=== PATIENT | male | born 1955 | race Caucasian/White ===

== ENCOUNTER 2024-06-25 16:31 | Inpatient (IN) | payer MEDICARE, OTHER ==
[2024-06-25] VITALS (10 sets, daily range): BP systolic 83–148; BP diastolic 53–104; PULSE 88–121; RESP 15–21; TEMP 97.1–98.1; O2SAT 96–98
[~2024-06-25] VITALS: Ht 157.5 cm; Wt 72.6 kg
[2024-06-25] MEDS: METHYLPREDNISOLONE SOD SUCC 125 MG/2ML VIAL IV STA (17:09)
[2024-06-25] MEDS: SODIUM CHLORIDE 0.9% 1000ML 1,000 ML IV STA (17:09)
[2024-06-25] MEDS: ALBUTEROL/IPRATROPIUM 3 ML NEB NEB ONE (17:14)
[2024-06-25 17:33] LABS: BASOPHILS % 0.2 % (0.0-1.0); HEMATOCRIT 43.7 % (38.2-49.6); HEMOGLOBIN 14.1 g/dL (14.0-18.0); LYMPHOCYTES # (AUTO) 0.4 (1.0-3.2); LYMPHOCYTES % 1.7 % (18.0-39.1); MEAN CORPUSCULAR HEMOGLOBIN 30.1 pg (28-32); MEAN CORPUSCULAR HGB CONC 32.3 g/dL (31-35); MEAN CORPUSCULAR VOLUME 93.2 fL (81-99); MONOCYTES # (AUTO) 0.8 (0.2-0.8); MONOCYTES % 3.5 % (4.4-11.3); NEUTROPHILS # (AUTO) 20.7 (2.1-6.9); NEUTROPHILS % 93.9 % (38.7-80.0); PLATELET COUNT 174 x10e3/uL (140-360); RED BLOOD COUNT 4.69 x10e6/uL (4.3-5.7); RED CELL DISTRIBUTION WIDTH 12.4 % (11.7-14.4); WHITE BLOOD COUNT 22.02 x10e3/uL (4.8-10.8)
[2024-06-25 17:48] LABS: INR 0.89; PARTIAL THROMBOPLASTIN TIME 21.3 seconds (23.8-35.5); PROTHROMBIN TIME 12.6 seconds (11.9-14.5)
[2024-06-25 17:52] LABS: CORONAVIRUS COVID-19 AG NEGATIVE (NEGATIVE); INFLUENZA A AG NEGATIVE (NEGATIVE); INFLUENZA B AG NEGATIVE (NEGATIVE)
[2024-06-25 17:56] LABS: ALBUMIN 3.3 g/dL (3.5-5.0); ALBUMIN/GLOBULIN RATIO 1.1 (0.8-2.0); ANION GAP 18.1 mmol/L (8-16); BILIRUBIN,TOTAL 0.8 mg/dL (0.2-1.2); CALCIUM 9.1 mg/dL (8.4-10.2); CREATININE, SERUM 1.2 mg/dL (0.72-1.25); POTASSIUM 5.1 mmol/L (3.5-5.1); TOTAL PROTEIN 6.3 g/dL (6.5-8.1)
[2024-06-25 17:59] LABS: B-TYPE NATRIURETIC PEPTIDE2 137.6 pg/mL (0-100)
[2024-06-25 18:02] LABS: TROPONIN I 0.093 ng/mL (0-0.300)
[2024-06-25 18:08] LABS: LYMPHOCYTES % (MANUAL) 2 % (19-48); MONOCYTES % (MANUAL) 5 % (3.4-9.0); NEUTROPHILS % (MANUAL) 93 % (40-74)
[2024-06-25 18:09] LABS: PLATELET ESTIMATE ADEQUATE; PLATELET MORPHOLOGY COMMENT NORMAL
[2024-06-25] MEDS ORDERED: IOPAMIDOL 370 MG/ML 100 ML INFUS..BTL INJ ONE (18:34)
[2024-06-25] MEDS: SODIUM CHLORIDE 0.9% 1000ML 1,000 ML IV SCH (19:00)
[2024-06-25] MEDS: LORAZEPAM INJ 2 MG/ML VIAL IV PRN (20:01)
[2024-06-25 21:17] LABS: ABG HCO3 31 mmol/L (22-26); ABG PCO2 54 mmHg (35-45); ABG PH 7.36 (7.35-7.45); ABG PO2 124 mmHg (80-105); ABG TCO2 32
[2024-06-25] MEDS: ALBUTEROL/IPRATROPIUM 3 ML NEB NEB SCH (22:03)
[2024-06-25] MEDS: INSULIN REGULAR, HUMAN 100 UNIT/1 ML SQ SCH (23:17)
[2024-06-26] VITALS (36 sets, daily range): BP systolic 93–183; BP diastolic 56–103; PULSE 57–130; RESP 14–30; TEMP 96.6–98.1; O2SAT 94–100
[2024-06-26 00:51] LABS: TROPONIN I 0.089 ng/mL (0-0.300)
[2024-06-26] MEDS: ONDANSETRON HCL INJ 2MG/ML 2ML 2 MG/ML VIAL IV PRN (04:04)
[2024-06-26] MEDS: DEXMEDETOMIDINE 400MCG/NS100ML 100 ML IV PRN (04:40)
[2024-06-26 06:26] LABS: ABG HCO3 31 mmol/L (22-26); ABG PCO2 45 mmHg (35-45); ABG PH 7.44 (7.35-7.45); ABG PO2 146 mmHg (80-105); ABG TCO2 32
[2024-06-26] MEDS ORDERED: INSULIN LISPRO 100 UNIT/1 ML 3ML VIAL SQ SCH (07:30)
[2024-06-26 07:44] LABS: BASOPHILS % 0.1 % (0.0-1.0); HEMATOCRIT 32.4 % (38.2-49.6); HEMOGLOBIN 10.4 g/dL (14.0-18.0); LYMPHOCYTES # (AUTO) 0.2 (1.0-3.2); LYMPHOCYTES % 1.3 % (18.0-39.1); MEAN CORPUSCULAR HEMOGLOBIN 30.2 pg (28-32); MEAN CORPUSCULAR HGB CONC 32.1 g/dL (31-35); MEAN CORPUSCULAR VOLUME 94.2 fL (81-99); MONOCYTES # (AUTO) 0.5 (0.2-0.8); MONOCYTES % 2.8 % (4.4-11.3); NEUTROPHILS # (AUTO) 15.5 (2.1-6.9); NEUTROPHILS % 95.2 % (38.7-80.0); PLATELET COUNT 125 x10e3/uL (140-360); RED BLOOD COUNT 3.44 x10e6/uL (4.3-5.7); RED CELL DISTRIBUTION WIDTH 11.9 % (11.7-14.4); WHITE BLOOD COUNT 16.31 x10e3/uL (4.8-10.8)
[2024-06-26 08:09] LABS: TROPONIN I 0.079 ng/mL (0-0.300)
[2024-06-26] MEDS: HEPARIN SOD (PORCINE) 5,000 UNIT/ML VIAL SC SCH (08:38)
[2024-06-26 08:47] LABS: ALBUMIN 2.4 g/dL (3.5-5.0); ALBUMIN/GLOBULIN RATIO 1.4 (0.8-2.0); ANION GAP 14.3 mmol/L (8-16); BILIRUBIN,TOTAL 0.4 mg/dL (0.2-1.2); CALCIUM 7.8 mg/dL (8.4-10.2); CREATININE, SERUM 1.14 mg/dL (0.72-1.25); POTASSIUM 4.3 mmol/L (3.5-5.1); TOTAL PROTEIN 4.1 g/dL (6.5-8.1)
[2024-06-26 10:46] LABS: ABG HCO3 31 mmol/L (22-26); ABG PCO2 45 mmHg (35-45); ABG PH 7.44 (7.35-7.45); ABG PO2 146 mmHg (80-105); ABG TCO2 32
[2024-06-26 10:48] LABS: LYMPHOCYTES % (MANUAL) 5 % (19-48); MONOCYTES % (MANUAL) 5 % (3.4-9.0); NEUTROPHILS % (MANUAL) 90 % (40-74)
[2024-06-26 10:49] LABS: PLATELET ESTIMATE ADEQUATE; PLATELET MORPHOLOGY COMMENT NORMAL
[2024-06-26] MEDS: PREDNISONE 20 MG TAB PO SCH (11:23)
[2024-06-26] MEDS ORDERED: MULTI-VITAMIN1 EACH PO (12:59)
[2024-06-26] MEDS ORDERED: zinc PO (12:59)
[2024-06-26] MEDS ORDERED: PREDNISONE10 MG PO (12:59)
[2024-06-26] MEDS ORDERED: VITAMIN B-121000 MC2 PO (12:59)
[2024-06-26] MEDS ORDERED: K-DUR10 MEQ PO (12:59)
[2024-06-26] MEDS ORDERED: ATORVASTATIN CA20 MG PO (12:59)
[2024-06-26] MEDS ORDERED: vitamin D PO (12:59)
[2024-06-26] MEDS ORDERED: GLIPIZIDE5 MG PO (12:59)
[2024-06-26] MEDS ORDERED: ASPIRIN81 MG PO (12:59)
[2024-06-26] MEDS ORDERED: LISINOPRIL10 MG PO (12:59)
[2024-06-26] MEDS ORDERED: NITROGLYCERIN0.4 MG SL (12:59)
[2024-06-26] MEDS: Morphine 4mg INJECTION 4 MG/ML INJ IV PRN (20:08)
[2024-06-26] MEDS: ATORVASTATIN 20 MG TAB PO SCH (21:04)
[2024-06-26] MEDS: INSULIN GLARGINE 100 UNITS/ML VIAL SQ SCH (21:12)
[2024-06-26] MEDS: MELATONIN 3 MG TAB PO PRN (21:38)
[2024-06-27] VITALS (23 sets, daily range): BP systolic 120–175; BP diastolic 67–105; PULSE 90–122; RESP 16–31; TEMP 98–99; O2SAT 89–100
[2024-06-27 06:38] LABS: ABG HCO3 31 mmol/L (22-26); ABG PCO2 54 mmHg (35-45); ABG PH 7.36 (7.35-7.45); ABG PO2 124 mmHg (80-105); ABG TCO2 32
[2024-06-27] MEDS: INSULIN GLARGINE 100 UNITS/ML VIAL SQ STA (07:30)
[2024-06-27] MEDS: INSULIN LISPRO 100 UNIT/1 ML 3ML VIAL SQ SCH (07:31)
[2024-06-27 08:11] LABS: BASOPHILS % 0.1 % (0.0-1.0); EOSINOPHILS % 0.1 % (0.0-6.0); HEMATOCRIT 37.4 % (38.2-49.6); HEMOGLOBIN 11.9 g/dL (14.0-18.0); LYMPHOCYTES # (AUTO) 0.7 (1.0-3.2); LYMPHOCYTES % 2.9 % (18.0-39.1); MEAN CORPUSCULAR HEMOGLOBIN 29.8 pg (28-32); MEAN CORPUSCULAR HGB CONC 31.8 g/dL (31-35); MEAN CORPUSCULAR VOLUME 93.5 fL (81-99); MONOCYTES % 4.2 % (4.4-11.3); NEUTROPHILS # (AUTO) 22.4 (2.1-6.9); NEUTROPHILS % 91.6 % (38.7-80.0); PLATELET COUNT 147 x10e3/uL (140-360); RED CELL DISTRIBUTION WIDTH 12.1 % (11.7-14.4); WHITE BLOOD COUNT 24.45 x10e3/uL (4.8-10.8)
[2024-06-27 08:31] LABS: CALCIUM 8.8 mg/dL (8.4-10.2); CREATININE, SERUM 1.07 mg/dL (0.72-1.25)
[2024-06-27 09:11] LABS: FREE THYROXINE INDEX 1.5736 (1.4-3.8); T3 UPTAKE 37.38 % (22.5-37.0); T4 (THYROXINE) 4.21 ug/dL (4.5-10.9); THYROID STIMULATING HORMONE 0.672 uIU/mL (0.350-4.940)
[2024-06-27] MEDS ORDERED: QUETIAPINE FUMARATE 25 MG TAB PO PRN (10:30)
[2024-06-27 11:47] LABS: BAND NEUTROPHILS % (MANUAL) 1 %; LYMPHOCYTES % (MANUAL) 4 % (19-48); MONOCYTES % (MANUAL) 1 % (3.4-9.0); NEUTROPHILS % (MANUAL) 94 % (40-74); PLATELET ESTIMATE SLIGHTLY DECREASED; PLATELET MORPHOLOGY COMMENT NORMAL; RBC MORPHOLOGY COMMENT NORMAL
[2024-06-27] MEDS: LISINOPRIL 2.5 MG TAB PO SCH (11:55)
[2024-06-27] MEDS: BUSPIRONE HCL 5 MG TAB PO SCH (16:56)
[2024-06-27] MEDS: INSULIN REGULAR, HUMAN 100 UNIT/1 ML ONE (18:09)
[2024-06-27] MEDS: QUETIAPINE FUMARATE 25 MG TAB PO PRN (20:56)
[2024-06-27] MEDS: INSULIN GLARGINE 100 UNITS/ML VIAL SQ SCH (21:00)
[2024-06-28] VITALS (20 sets, daily range): BP systolic 96–168; BP diastolic 67–136; PULSE 97–126; RESP 16–29; TEMP 97.6–98.9; O2SAT 96–100
[2024-06-28] MEDS: PREDNISONE 10 MG TAB PO SCH (08:53)
[2024-06-28] MEDS: CEPHALEXIN 500 MG CAP PO SCH (08:53)
[2024-06-28] MEDS: ALPRAZOLAM 0.5 MG TAB PO PRN (08:53)
[2024-06-28] MEDS: CLONIDINE HCL 0.2 MG/24 HR 1 EA PATCH TOP SCH (09:42)
[2024-06-28] MEDS: QUETIAPINE FUMARATE 25 MG TAB PO SCH (09:43)
[2024-06-28] MEDS: AZITHROMYCIN 250 MG TAB PO SCH (19:25)
[2024-06-29] VITALS (20 sets, daily range): BP systolic 82–148; BP diastolic 47–93; PULSE 51–139; RESP 14–26; TEMP 96.9–98.3; O2SAT 91–100
[2024-06-29 07:05] LABS: BASOPHILS % 0.1 % (0.0-1.0); EOSINOPHILS # (AUTO) 0.4 (0.0-0.4); EOSINOPHILS % 2.8 % (0.0-6.0); HEMATOCRIT 34.1 % (38.2-49.6); HEMOGLOBIN 11.4 g/dL (14.0-18.0); LYMPHOCYTES % 6.8 % (18.0-39.1); MEAN CORPUSCULAR HGB CONC 33.4 g/dL (31-35); MEAN CORPUSCULAR VOLUME 89.7 fL (81-99); MONOCYTES # (AUTO) 1.1 (0.2-0.8); MONOCYTES % 7.8 % (4.4-11.3); NEUTROPHILS # (AUTO) 11.3 (2.1-6.9); NEUTROPHILS % 80.5 % (38.7-80.0); PLATELET COUNT 133 x10e3/uL (140-360); RED CELL DISTRIBUTION WIDTH 12.6 % (11.7-14.4); WHITE BLOOD COUNT 14.02 x10e3/uL (4.8-10.8)
[2024-06-29 07:34] LABS: ANION GAP 13.1 mmol/L (8-16); CALCIUM 8.9 mg/dL (8.4-10.2); CREATININE, SERUM 1.1 mg/dL (0.72-1.25)
[2024-06-29] MEDS: DEXTROSE 50% SYRINGE 50 ML IV PRN (07:34)
[2024-06-29 07:38] LABS: POTASSIUM 3.1 mmol/L (3.5-5.1)
[2024-06-29] MEDS: QUETIAPINE FUMARATE 25 MG TAB PO SCH (20:07)
[2024-06-30] VITALS (24 sets, daily range): BP systolic 89–148; BP diastolic 19–86; PULSE 60–128; RESP 14–27; TEMP 97.4–98.2; O2SAT 95–100
[2024-06-30] MEDS: QUETIAPINE FUMARATE 25 MG TAB PO SCH (08:29)
[2024-06-30 11:36] LABS: BASOPHILS % 0.2 % (0.0-1.0); EOSINOPHILS # (AUTO) 0.5 (0.0-0.4); EOSINOPHILS % 3.2 % (0.0-6.0); HEMATOCRIT 34.3 % (38.2-49.6); HEMOGLOBIN 10.8 g/dL (14.0-18.0); LYMPHOCYTES # (AUTO) 0.7 (1.0-3.2); LYMPHOCYTES % 4.2 % (18.0-39.1); MEAN CORPUSCULAR HEMOGLOBIN 30.2 pg (28-32); MEAN CORPUSCULAR HGB CONC 31.5 g/dL (31-35); MONOCYTES % 6.1 % (4.4-11.3); NEUTROPHILS # (AUTO) 14.5 (2.1-6.9); NEUTROPHILS % 84.7 % (38.7-80.0); RED BLOOD COUNT 3.58 x10e6/uL (4.3-5.7); RED CELL DISTRIBUTION WIDTH 12.6 % (11.7-14.4); WHITE BLOOD COUNT 17.12 x10e3/uL (4.8-10.8)
[2024-06-30 11:38] LABS: MEAN CORPUSCULAR VOLUME 95.8 fL (81-99); PLATELET COUNT 112 x10e3/uL (140-360)
[2024-06-30 11:51] LABS: ANION GAP 11.3 mmol/L (8-16); CALCIUM 7.7 mg/dL (8.4-10.2); CREATININE, SERUM 0.92 mg/dL (0.72-1.25)
[2024-06-30 12:02] LABS: POTASSIUM 3.3 mmol/L (3.5-5.1)
[2024-07-01] VITALS (12 sets, daily range): BP systolic 94–140; BP diastolic 49–97; PULSE 92–126; RESP 20–24; TEMP 97.7–98.6; O2SAT 96–100
[2024-07-01] MEDS: HYDROXYZINE HCL 25 MG TAB PO SCH (14:49)
[2024-07-01] MEDS: MELATONIN 3 MG TAB PO SCH (20:42)
[2024-07-01] MEDS: DIVALPROEX SODIUM 250 MG TAB...DR PO SCH (20:43)
[2024-07-01] MEDS: TRAZODONE HCL 50 MG TAB PO SCH (20:43)
[2024-07-01] MEDS ORDERED: QUETIAPINE FUMARATE 100 MG TAB PO SCH (21:00)
[2024-07-01] MEDS ORDERED: HYDROXYZINE HCL 25 MG TAB PO SCH (21:00)
[2024-07-02] VITALS (16 sets, daily range): BP systolic 98–139; BP diastolic 54–98; PULSE 63–125; RESP 18–28; TEMP 97.1–98.6; O2SAT 96–100
[2024-07-02] MEDS ORDERED: QUETIAPINE FUMARATE 25 MG TAB PO SCH (09:00)
[2024-07-02 10:34] LABS: ABG HCO3 31 mmol/L (22-26); ABG PCO2 42 mmHg (35-45); ABG PH 7.48 (7.35-7.45); ABG PO2 136 mmHg (80-105); ABG TCO2 32
[2024-07-02 14:41] LABS: BASOPHILS % 0.2 % (0.0-1.0); EOSINOPHILS # (AUTO) 0.6 (0.0-0.4); EOSINOPHILS % 3.6 % (0.0-6.0); HEMOGLOBIN 11.6 g/dL (14.0-18.0); LYMPHOCYTES # (AUTO) 0.4 (1.0-3.2); LYMPHOCYTES % 2.6 % (18.0-39.1); MEAN CORPUSCULAR HEMOGLOBIN 30.6 pg (28-32); MEAN CORPUSCULAR HGB CONC 34.1 g/dL (31-35); MEAN CORPUSCULAR VOLUME 89.7 fL (81-99); MONOCYTES # (AUTO) 1.1 (0.2-0.8); MONOCYTES % 6.3 % (4.4-11.3); NEUTROPHILS # (AUTO) 14.4 (2.1-6.9); NEUTROPHILS % 85.6 % (38.7-80.0); PLATELET COUNT 110 x10e3/uL (140-360); RED BLOOD COUNT 3.79 x10e6/uL (4.3-5.7); RED CELL DISTRIBUTION WIDTH 12.4 % (11.7-14.4); WHITE BLOOD COUNT 16.84 x10e3/uL (4.8-10.8)
[2024-07-02 14:55] LABS: CALCIUM 9.2 mg/dL (8.4-10.2); CREATININE, SERUM 1.02 mg/dL (0.72-1.25)
[2024-07-02] MEDS: HYDROXYZINE HCL 25 MG TAB PO ONE (16:41)
[2024-07-02] MEDS: HALOPERIDOL LACTATE 5 MG/ML VIAL IM ONE (16:48)
[2024-07-02] MEDS: KETAMINE 50MG/5ML SYR IV ONE (18:10)
[2024-07-02 18:26] LABS: ABG PCO2 37 mmHg (35-45); ABG PH 7.49 (7.35-7.45)
[2024-07-02 18:27] LABS: ABG HCO3 28 mmol/L (22-26); ABG PO2 304 mmHg (80-105); ABG TCO2 29
[2024-07-02] MEDS: DEXMEDETOMIDINE 400MCG/NS100ML 100 ML IV PRN (19:46)
[2024-07-03] VITALS (21 sets, daily range): BP systolic 82–147; BP diastolic 42–76; PULSE 66–108; RESP 16–25; TEMP 97–98.2; O2SAT 95–100
[2024-07-03 05:29] LABS: BASOPHILS % 0.3 % (0.0-1.0); EOSINOPHILS # (AUTO) 0.6 (0.0-0.4); EOSINOPHILS % 4.2 % (0.0-6.0); HEMATOCRIT 32.4 % (38.2-49.6); HEMOGLOBIN 10.1 g/dL (14.0-18.0); LYMPHOCYTES # (AUTO) 0.8 (1.0-3.2); LYMPHOCYTES % 5.5 % (18.0-39.1); MEAN CORPUSCULAR HGB CONC 31.2 g/dL (31-35); MEAN CORPUSCULAR VOLUME 96.1 fL (81-99); MONOCYTES # (AUTO) 0.9 (0.2-0.8); MONOCYTES % 5.9 % (4.4-11.3); NEUTROPHILS # (AUTO) 12.1 (2.1-6.9); NEUTROPHILS % 82.5 % (38.7-80.0); PLATELET COUNT 101 x10e3/uL (140-360); RED BLOOD COUNT 3.37 x10e6/uL (4.3-5.7); RED CELL DISTRIBUTION WIDTH 12.3 % (11.7-14.4); WHITE BLOOD COUNT 14.65 x10e3/uL (4.8-10.8)
[2024-07-03 05:37] LABS: ANION GAP 12.5 mmol/L (8-16); CALCIUM 8.5 mg/dL (8.4-10.2); CREATININE, SERUM 1.07 mg/dL (0.72-1.25); POTASSIUM 3.5 mmol/L (3.5-5.1)
[2024-07-03 08:01] LABS: ABG HCO3 31 mmol/L (22-26); ABG PCO2 42 mmHg (35-45); ABG PH 7.48 (7.35-7.45); ABG PO2 136 mmHg (80-105); ABG TCO2 32
[2024-07-03 08:01] LABS: ABG HCO3 28 mmol/L (22-26); ABG PCO2 37 mmHg (35-45); ABG PH 7.49 (7.35-7.45); ABG PO2 304 mmHg (80-105); ABG TCO2 29
[2024-07-03] MEDS: VENLAFAXINE HCL 37.5 MG TAB PO SCH (10:04)
[2024-07-03] MEDS: ALPRAZOLAM 0.5 MG TAB PO SCH (10:04)
[2024-07-03] MEDS: HYDROXYZINE HCL 25 MG TAB PO SCH (14:10)
[2024-07-03 18:02] LABS: ABG HCO3 30 mmol/L (22-26); ABG PCO2 48 mmHg (35-45); ABG PO2 96 mmHg (80-105); ABG TCO2 31
[2024-07-03] MEDS: TRAZODONE HCL 50 MG TAB PO SCH (21:42)
[2024-07-04] VITALS (28 sets, daily range): BP systolic 86–140; BP diastolic 55–89; PULSE 75–112; RESP 16–30; TEMP 98.4–98.7; O2SAT 96–100
[2024-07-04] MEDS ORDERED: HYDROXYZINE HCL 25 MG TAB PO PRN (11:15)
[2024-07-04] MEDS ORDERED: MAGNESIUM HYDROXIDE 30 ML UDC PO PRN (11:30)
[2024-07-04] MEDS ORDERED: LISINOPRIL 2.5 MG TAB PO PRN (11:30)
[2024-07-04 14:22] LABS: ABG HCO3 30 mmol/L (22-26); ABG PCO2 48 mmHg (35-45); ABG PO2 96 mmHg (80-105); ABG TCO2 31
[2024-07-05] VITALS (25 sets, daily range): BP systolic 95–156; BP diastolic 53–118; PULSE 84–103; RESP 14–30; TEMP 97.4–98.6; O2SAT 97–100
[2024-07-05 06:34] LABS: BASOPHILS # (AUTO) 0.1 (0.0-0.1); BASOPHILS % 0.4 % (0.0-1.0); EOSINOPHILS # (AUTO) 0.4 (0.0-0.4); EOSINOPHILS % 3.6 % (0.0-6.0); HEMATOCRIT 32.5 % (38.2-49.6); HEMOGLOBIN 10.2 g/dL (14.0-18.0); LYMPHOCYTES # (AUTO) 0.7 (1.0-3.2); LYMPHOCYTES % 5.9 % (18.0-39.1); MEAN CORPUSCULAR HGB CONC 31.4 g/dL (31-35); MEAN CORPUSCULAR VOLUME 95.6 fL (81-99); MONOCYTES # (AUTO) 0.7 (0.2-0.8); MONOCYTES % 6.1 % (4.4-11.3); NEUTROPHILS # (AUTO) 9.4 (2.1-6.9); NEUTROPHILS % 83.3 % (38.7-80.0); PLATELET COUNT 99 x10e3/uL (140-360); RED CELL DISTRIBUTION WIDTH 12.3 % (11.7-14.4); WHITE BLOOD COUNT 11.24 x10e3/uL (4.8-10.8)
[2024-07-05 07:11] LABS: ALBUMIN 1.9 g/dL (3.5-5.0); ALBUMIN/GLOBULIN RATIO 0.7 (0.8-2.0); BILIRUBIN,TOTAL 0.7 mg/dL (0.2-1.2); CALCIUM 8.6 mg/dL (8.4-10.2); CREATININE, SERUM 0.8 mg/dL (0.72-1.25); TOTAL PROTEIN 4.8 g/dL (6.5-8.1)
[2024-07-05] MEDS: SENNOSIDES 8.6 MG TAB PO SCH (09:00)
[2024-07-05] MEDS: DOCUSATE SODIUM 100 MG CAP PO SCH (09:00)
[2024-07-06] VITALS (24 sets, daily range): BP systolic 91–157; BP diastolic 51–91; PULSE 80–118; RESP 17–27; TEMP 97.8–98.4; O2SAT 82–100
[2024-07-06 06:28] LABS: BASOPHILS % 0.5 % (0.0-1.0); EOSINOPHILS # (AUTO) 0.3 (0.0-0.4); EOSINOPHILS % 4.1 % (0.0-6.0); HEMATOCRIT 30.9 % (38.2-49.6); HEMOGLOBIN 9.7 g/dL (14.0-18.0); LYMPHOCYTES # (AUTO) 0.6 (1.0-3.2); MEAN CORPUSCULAR HEMOGLOBIN 29.8 pg (28-32); MEAN CORPUSCULAR HGB CONC 31.4 g/dL (31-35); MEAN CORPUSCULAR VOLUME 94.8 fL (81-99); MONOCYTES # (AUTO) 0.7 (0.2-0.8); MONOCYTES % 8.4 % (4.4-11.3); NEUTROPHILS # (AUTO) 6.6 (2.1-6.9); NEUTROPHILS % 79.2 % (38.7-80.0); PLATELET COUNT 107 x10e3/uL (140-360); RED BLOOD COUNT 3.26 x10e6/uL (4.3-5.7)
[2024-07-06 07:07] LABS: ALBUMIN 1.8 g/dL (3.5-5.0); ALBUMIN/GLOBULIN RATIO 0.7 (0.8-2.0); ANION GAP 13.7 mmol/L (8-16); BILIRUBIN,TOTAL 0.6 mg/dL (0.2-1.2); CALCIUM 8.3 mg/dL (8.4-10.2); CREATININE, SERUM 0.73 mg/dL (0.72-1.25); POTASSIUM 3.7 mmol/L (3.5-5.1); TOTAL PROTEIN 4.3 g/dL (6.5-8.1)
[2024-07-06] MEDS ORDERED: ALPRAZOLAM 0.5 MG TAB PO PRN (17:00)
[2024-07-06] MEDS ORDERED: TRAZODONE HCL 50 MG TAB PO SCH (21:00)
[2024-07-06] MEDS ORDERED: SODIUM CHLORIDE 0.9% 100 ML ONE (21:45)
== END 2024-07-06 22:12 | DRG 871 ==
LOC: ER 16:38 → ERHOLD 18:45 → ICU 19:37 → MED/SURG3 06-30 22:37 → IMCU 07-02 19:23 → ICU 07-03 18:47
PROVIDERS: ADMIT Internal Medicine; ATTEND Internal Medicine
PROC: 3E0333Z Introduction of Anti-inflammatory into Peripheral Vein, Percutaneous Approach (ICD-10-PCS; principal; 2024-06-25)
PROC: 4A133R1 Monitoring of Arterial Saturation, Peripheral, Percutaneous Approach (ICD-10-PCS; 2024-06-25)
DX: A41.9 Sepsis, unspecified organism (principal); G93.41 Metabolic encephalopathy; J18.9 Pneumonia, unspecified organism; J96.21 Acute and chronic respiratory failure with hypoxia; J44.0 Chronic obstructive pulmonary disease with (acute) lower respiratory infection; J44.1 Chronic obstructive pulmonary disease with (acute) exacerbation; F23 Brief psychotic disorder; Z78.1 Physical restraint status; Z99.81 Dependence on supplemental oxygen; E11.65 Type 2 diabetes mellitus with hyperglycemia; I10 Essential (primary) hypertension; E11.649 Type 2 diabetes mellitus with hypoglycemia without coma; R74.01 Elevation of levels of liver transaminase levels; J43.9 Emphysema, unspecified; F41.9 Anxiety disorder, unspecified; T38.0X5A Adverse effect of glucocorticoids and synthetic analogues, initial encounter; R45.1 Restlessness and agitation; Z11.52 Encounter for screening for COVID-19; M54.9 Dorsalgia, unspecified
CPT/HCPCS: 36415; 36569; 36600; 51700; 71045; 71260; 80048; 80053; 82103; 82140; 82550; 82805; 82947; 82948; 83605; 83735; 83880; 84436; 84443; 84479; 84484; 85025; 85379; 85610; 85730; 87040; 93005; 93306; 94640; 94660; 94799; 96372; 99252; 99284; J1630; J1644; J1815; J2060; J2270; J2405; J2543; J2919; J3410; J7030; J7050; J7512; J7799; Q9967

== ENCOUNTER 2024-09-08 18:09 | Inpatient (IN) | payer MEDICARE ==
[~2024-09-08] VITALS: Ht 157.5 cm; Wt 72.6 kg
[~2024-09-08 18:09] MED LIST: ASPIRIN81 MG PO; ATORVASTATIN CA20 MG PO; GLIPIZIDE5 MG PO; K-DUR10 MEQ PO; LISINOPRIL10 MG PO; MULTI-VITAMIN1 EACH PO; NITROGLYCERIN0.4 MG SL; PREDNISONE10 MG PO; VITAMIN B-121000 MC2 PO; vitamin D PO; zinc PO
[2024-09-08 18:36] LABS: BASOPHILS % 0.2 % (0.0-1.0); HEMATOCRIT 40.8 % (38.2-49.6); HEMOGLOBIN 13.5 g/dL (14.0-18.0); LYMPHOCYTES # (AUTO) 1.2 (1.0-3.2); MEAN CORPUSCULAR HEMOGLOBIN 30.3 pg (28-32); MEAN CORPUSCULAR HGB CONC 33.1 g/dL (31-35); MEAN CORPUSCULAR VOLUME 91.7 fL (81-99); MONOCYTES # (AUTO) 0.9 (0.2-0.8); MONOCYTES % 5.8 % (4.4-11.3); NEUTROPHILS % 85.4 % (38.7-80.0); PLATELET COUNT 326 x10e3/uL (140-360); RED BLOOD COUNT 4.45 x10e6/uL (4.3-5.7); RED CELL DISTRIBUTION WIDTH 13.8 % (11.7-14.4); WHITE BLOOD COUNT 15.22 x10e3/uL (4.8-10.8)
[2024-09-08 18:49] VITALS: TEMP 97.9
[2024-09-08 18:53] LABS: ALBUMIN 4.3 g/dL (3.5-5.0); ALBUMIN/GLOBULIN RATIO 1.2 (0.8-2.0); ANION GAP 20.5 mmol/L (8-16); BILIRUBIN,TOTAL 0.4 mg/dL (0.2-1.2); CALCIUM 9.5 mg/dL (8.4-10.2); CREATININE, SERUM 1.54 mg/dL (0.72-1.25); POTASSIUM 4.5 mmol/L (3.5-5.1); TOTAL PROTEIN 7.8 g/dL (6.5-8.1)
[2024-09-08] MEDS: SODIUM CHLORIDE 0.9% 1000ML 1,000 ML IV STA (18:54)
[2024-09-08] MEDS: ACETAMINOPHEN 325 MG TAB PO STA (18:55)
[2024-09-08 19:00] LABS: TROPONIN I 0.022 ng/mL (0-0.300)
[2024-09-08 19:02] LABS: STREPTOCOCCUS GRP A ANTIGEN NEGATIVE (NEGATIVE)
[2024-09-08 19:06] LABS: CORONAVIRUS COVID-19 AG NEGATIVE (NEGATIVE); INFLUENZA A AG NEGATIVE (NEGATIVE); INFLUENZA B AG NEGATIVE (NEGATIVE)
[2024-09-08 19:38] LABS: ABG HCO3 23 mmol/L (22-26); ABG PCO2 40 mmHg (35-45); ABG PH 7.37 (7.35-7.45); ABG PO2 125 mmHg (80-105); ABG TCO2 24
[2024-09-08] MEDS ORDERED: Morphine 4mg INJECTION 4 MG/ML INJ IV PRN (19:45)
[2024-09-08] MEDS ORDERED: ONDANSETRON HCL INJ 2MG/ML 2ML 2 MG/ML VIAL IV PRN (19:45)
[2024-09-08] MEDS: SODIUM CHLORIDE 0.9% 1000ML 1,000 ML IV SCH (20:25)
[2024-09-08 20:28] LABS: CLARITY,URINE CLEAR (CLEAR); COLOR,URINE YELLOW (YELLOW); LEUKOCYTE ESTERASE ,URINE NEGATIVE (NEGATIVE); NITRITE,URINE NEGATIVE (NEGATIVE); PH,URINE 5.5 (5 - 7); PROTEIN,URINE DIPSTICK NEGATIVE (NEGATIVE)
[2024-09-08 20:29] LABS: BILIRUBIN,URINE NEGATIVE (NEGATIVE); GLUCOSE, URINE >=1000 (NEGATIVE); KETONES,URINE NEGATIVE (NEGATIVE); URINE UROBILINOGEN 0.2 mg/dL (0.2 - 1)
[2024-09-08 20:30] LABS: BACTERIA,URINE RARE /HPF; EPITHELIAL CELLS,URINE RARE /LPF; RBC,URINE 0-5 /HPF (0-5); WBC,URINE (MAN) 0-5 /HPF (0-5)
[2024-09-08 21:02] VITALS: PULSE 87; RESP 17
[2024-09-08 21:38] VITALS: BP 161/87; PULSE 78; RESP 20; TEMP 97.5; O2SAT 100
[2024-09-08] MEDS ORDERED: BUSPIRONE HCL5 MG PO (21:58)
[2024-09-08] MEDS ORDERED: FAMOTIDINE20 MG PO (21:58)
[2024-09-08] MEDS ORDERED: MONTELUKAST SOD10 MG PO (21:58)
[2024-09-08] MEDS ORDERED: TRAZODONE HCL50 MG PO (21:58)
[2024-09-08] MEDS ORDERED: LISINOPRIL5 MG PO (21:58)
[2024-09-08] MEDS: TRAZODONE HCL 50 MG TAB PO SCH (22:59)
[2024-09-08 23:19] VITALS: BP 161/87; PULSE 78; RESP 20; TEMP 97.5; O2SAT 100
[2024-09-08 23:26] VITALS: BP 146/78; PULSE 78; RESP 18; TEMP 98.2; O2SAT 100
[2024-09-09] VITALS (11 sets, daily range): BP systolic 119–151; BP diastolic 67–88; PULSE 70–87; RESP 18–20; TEMP 97.4–98.2; O2SAT 97–100
[2024-09-09 05:54] LABS: BASOPHILS # (AUTO) 0.1 (0.0-0.1); BASOPHILS % 0.6 % (0.0-1.0); EOSINOPHILS # (AUTO) 0.2 (0.0-0.4); EOSINOPHILS % 1.4 % (0.0-6.0); HEMATOCRIT 34.5 % (38.2-49.6); HEMOGLOBIN 11.2 g/dL (14.0-18.0); LYMPHOCYTES # (AUTO) 2.2 (1.0-3.2); LYMPHOCYTES % 20.8 % (18.0-39.1); MEAN CORPUSCULAR HEMOGLOBIN 30.4 pg (28-32); MEAN CORPUSCULAR HGB CONC 32.5 g/dL (31-35); MEAN CORPUSCULAR VOLUME 93.8 fL (81-99); MONOCYTES % 9.7 % (4.4-11.3); NEUTROPHILS # (AUTO) 7.1 (2.1-6.9); PLATELET COUNT 236 x10e3/uL (140-360); RED BLOOD COUNT 3.68 x10e6/uL (4.3-5.7); RED CELL DISTRIBUTION WIDTH 13.9 % (11.7-14.4); WHITE BLOOD COUNT 10.64 x10e3/uL (4.8-10.8)
[2024-09-09 06:26] LABS: ALBUMIN/GLOBULIN RATIO 1.3 (0.8-2.0); ANION GAP 11.2 mmol/L (8-16); BILIRUBIN,TOTAL 0.4 mg/dL (0.2-1.2); CALCIUM 7.9 mg/dL (8.4-10.2); CREATININE, SERUM 1.06 mg/dL (0.72-1.25); POTASSIUM 4.2 mmol/L (3.5-5.1); TOTAL PROTEIN 5.3 g/dL (6.5-8.1)
[2024-09-09 06:31] LABS: TROPONIN I 0.018 ng/mL (0-0.300)
[2024-09-09] MEDS ORDERED: DEXTROSE 50% SYRINGE 50 ML IV PRN (10:00)
[2024-09-09] MEDS ORDERED: GUAIFENESIN/DEXTROMETHORPHAN LIQD 5 ML UDC NG PRN (10:00)
[2024-09-09 10:47] LABS: CHOL/HDL RATIO 2.5 (3.9-4.7)
[2024-09-09] MEDS: INSULIN REGULAR, HUMAN 100 UNIT/1 ML SQ SCH (12:15)
[2024-09-09] MEDS: BENZONATATE 100 MG CAP PO SCH (14:16)
[2024-09-09 14:17] LABS: TROPONIN I 0.018 ng/mL (0-0.300)
[2024-09-09] MEDS: ENOXAPARIN SOD INJ 40 MG/0.4 ML SYR SC SCH (16:50)
[2024-09-09] MEDS: ALBUTEROL/IPRATROPIUM 3 ML NEB NEB SCH (19:11)
[2024-09-09] MEDS: BUDESONIDE 0.25 MG/2 ML NEB NEB SCH (19:12)
[2024-09-09] MEDS: TRAZODONE HCL 50 MG TAB PO SCH (21:22)
[2024-09-09] MEDS: ATORVASTATIN 20 MG TAB PO SCH (21:22)
[2024-09-10] VITALS (12 sets, daily range): BP systolic 121–168; BP diastolic 61–92; PULSE 70–95; RESP 17–20; TEMP 97.5–98.1; O2SAT 97–100
[2024-09-10] MEDS: ASPIRIN 81 MG CHEW TAB PO SCH (09:09)
[2024-09-10] MEDS: BUSPIRONE HCL 5 MG TAB PO SCH (09:09)
[2024-09-10] MEDS: LORATADINE 10 MG TAB PO SCH (09:09)
[2024-09-10] MEDS: MULTIVITAMINS/MINERALS TAB PO SCH (09:09)
[2024-09-10] MEDS: MONTELUKAST SODIUM 10 MG TAB PO SCH (09:09)
[2024-09-10] MEDS: CYANOCOBALAMIN 1,000 MCG TAB PO SCH (09:09)
[2024-09-10] MEDS: FAMOTIDINE 20 MG TAB PO SCH (09:09)
[2024-09-10] MEDS: INSULIN GLARGINE 100 UNITS/ML VIAL SQ SCH (12:20)
[2024-09-10 13:25] LABS: BASOPHILS # (AUTO) 0.1 (0.0-0.1); BASOPHILS % 0.9 % (0.0-1.0); EOSINOPHILS # (AUTO) 0.3 (0.0-0.4); HEMATOCRIT 35.8 % (38.2-49.6); HEMOGLOBIN 11.8 g/dL (14.0-18.0); LYMPHOCYTES # (AUTO) 2.2 (1.0-3.2); MEAN CORPUSCULAR HEMOGLOBIN 30.6 pg (28-32); MEAN CORPUSCULAR VOLUME 92.7 fL (81-99); MONOCYTES # (AUTO) 0.9 (0.2-0.8); NEUTROPHILS # (AUTO) 7.3 (2.1-6.9); NEUTROPHILS % 67.5 % (38.7-80.0); PLATELET COUNT 217 x10e3/uL (140-360); RED BLOOD COUNT 3.86 x10e6/uL (4.3-5.7); RED CELL DISTRIBUTION WIDTH 13.5 % (11.7-14.4); WHITE BLOOD COUNT 10.85 x10e3/uL (4.8-10.8)
[2024-09-10 13:51] LABS: CALCIUM 7.6 mg/dL (8.4-10.2); CREATININE, SERUM 0.97 mg/dL (0.72-1.25)
[2024-09-11] VITALS (11 sets, daily range): BP systolic 117–155; BP diastolic 62–75; PULSE 72–94; RESP 18–24; TEMP 97.6–98.2; O2SAT 97–100
[2024-09-11 00:12] LABS: % IRON SATURATION 16 % (15-50); IRON 45 ug/dL (65-175); TOTAL IRON BINDING CAPACITY 276 ug/dL (261-478); TRANSFERRIN 197 mg/dL (174-364)
[2024-09-11 05:45] LABS: BASOPHILS # (AUTO) 0.1 (0.0-0.1); BASOPHILS % 0.8 % (0.0-1.0); EOSINOPHILS # (AUTO) 0.5 (0.0-0.4); EOSINOPHILS % 4.2 % (0.0-6.0); HEMATOCRIT 36.9 % (38.2-49.6); HEMOGLOBIN 12.2 g/dL (14.0-18.0); LYMPHOCYTES % 16.5 % (18.0-39.1); MEAN CORPUSCULAR HEMOGLOBIN 30.3 pg (28-32); MEAN CORPUSCULAR HGB CONC 33.1 g/dL (31-35); MEAN CORPUSCULAR VOLUME 91.8 fL (81-99); MONOCYTES # (AUTO) 1.1 (0.2-0.8); MONOCYTES % 8.8 % (4.4-11.3); NEUTROPHILS # (AUTO) 8.4 (2.1-6.9); PLATELET COUNT 240 x10e3/uL (140-360); RED BLOOD COUNT 4.02 x10e6/uL (4.3-5.7); RED CELL DISTRIBUTION WIDTH 13.2 % (11.7-14.4); WHITE BLOOD COUNT 12.21 x10e3/uL (4.8-10.8)
[2024-09-11 06:11] LABS: ANION GAP 13.2 mmol/L (8-16); CALCIUM 8.8 mg/dL (8.4-10.2); CREATININE, SERUM 1.21 mg/dL (0.72-1.25); POTASSIUM 4.2 mmol/L (3.5-5.1)
[2024-09-12] VITALS (13 sets, daily range): BP systolic 117–150; BP diastolic 58–80; PULSE 78–91; RESP 18–21; TEMP 97.3–98.4; O2SAT 98–100
[2024-09-12 05:50] LABS: ABG HCO3 23 mmol/L (22-26); ABG PCO2 40 mmHg (35-45); ABG PH 7.37 (7.35-7.45); ABG PO2 125 mmHg (80-105); ABG TCO2 24
[2024-09-12] MEDS: IRON-VITAMIN-MINERAL CAPSULE PO SCH (09:04)
[2024-09-12] MEDS ORDERED: GADOBENATE DIMEGLUMINE 1 ML IV ONE (09:25)
[2024-09-13] VITALS (7 sets, daily range): BP systolic 116–134; BP diastolic 63–71; PULSE 84–93; RESP 16–20; TEMP 97.9–98.7; O2SAT 97–100
[2024-09-13] MEDS ORDERED: BENZONATATE100 MG PO (10:19)
[2024-09-13] MEDS ORDERED: ZITHROMAX500 MG PO (10:19)
[2024-09-13] MEDS ORDERED: LORATADINE10 MG PO (10:19)
[2024-09-13] MEDS ORDERED: ONDANSETRON HCL 4 MG ORAL DISINTEGRATING TAB PO PRN (11:15)
[2024-09-14] MEDS ORDERED: AZITHROMYCIN 250 MG TAB PO SCH (10:00)
== END 2024-09-13 13:40 | disposition home or self-care (01) | DRG 871 ==
LOC: ER 18:13 → ERHOLD 19:47 → MED/SURG2 21:42
PROVIDERS: ADMIT Internal Medicine; ATTEND Internal Medicine
PROC: 4A033R1 Measurement of Arterial Saturation, Peripheral, Percutaneous Approach (ICD-10-PCS; principal; 2024-09-08)
PROC: 4A033R1 Measurement of Arterial Saturation, Peripheral, Percutaneous Approach (ICD-10-PCS; 2024-09-08)
PROC: 3E03329 Introduction of Other Anti-infective into Peripheral Vein, Percutaneous Approach (ICD-10-PCS; 2024-09-08)
DX: A41.9 Sepsis, unspecified organism (principal); J18.9 Pneumonia, unspecified organism; J96.21 Acute and chronic respiratory failure with hypoxia; K85.90 Acute pancreatitis without necrosis or infection, unspecified; J44.1 Chronic obstructive pulmonary disease with (acute) exacerbation; I50.30 Unspecified diastolic (congestive) heart failure; J44.0 Chronic obstructive pulmonary disease with (acute) lower respiratory infection; E87.20 Acidosis, unspecified; K86.2 Cyst of pancreas; R65.20 Severe sepsis without septic shock; J98.4 Other disorders of lung; Z87.891 Personal history of nicotine dependence; K86.89 Other specified diseases of pancreas; I11.0 Hypertensive heart disease with heart failure; E11.65 Type 2 diabetes mellitus with hyperglycemia; Z79.84 Long term (current) use of oral hypoglycemic drugs; D49.0 Neoplasm of unspecified behavior of digestive system; J43.2 Centrilobular emphysema; R91.8 Other nonspecific abnormal finding of lung field; Z99.81 Dependence on supplemental oxygen; E78.5 Hyperlipidemia, unspecified; R00.0 Tachycardia, unspecified; I49.1 Atrial premature depolarization; F41.9 Anxiety disorder, unspecified; G89.29 Other chronic pain; M54.9 Dorsalgia, unspecified; F10.11 Alcohol abuse, in remission; Z11.52 Encounter for screening for COVID-19; Z79.82 Long term (current) use of aspirin; Z79.899 Other long term (current) drug therapy
CPT/HCPCS: 36415; 36600; 71045; 71250; 74183; 80048; 80053; 80061; 81001; 82270; 82550; 82607; 82746; 82805; 82948; 83036; 83518; 83540; 83605; 83690; 83880; 84466; 84484; 85025; 85045; 86301; 87040; 87070; 87086; 93005; 93306; 94640; 94799; 96372; 99285; J1650; J1815; J2543; J7030; J7050

== ENCOUNTER 2025-02-09 18:44 | Emergency (ER) | payer MEDICARE ==
[~2025-02-09] VITALS: Ht 162.6 cm; Wt 63.5 kg
[~2025-02-09 18:44] MED LIST changes: +BENZONATATE100 MG PO; +BUSPIRONE HCL5 MG PO; +FAMOTIDINE20 MG PO; +LISINOPRIL5 MG PO; +LORATADINE10 MG PO; +MONTELUKAST SOD10 MG PO; +TRAZODONE HCL50 MG PO; +ZITHROMAX500 MG PO
[2025-02-09] MEDS ORDERED: ONDANSETRON HCL INJ 2MG/ML 2ML 2 MG/ML VIAL ONE (19:10)
[2025-02-09 19:29] LABS: BASOPHILS % 0.3 % (0.0-1.0); EOSINOPHILS % 0.0 % (0.0-6.0); LYMPHOCYTES % 2.1 % (18.0-39.1); MONOCYTES % 5.4 % (4.4-11.3); NEUTROPHILS % 88.1 % (38.7-80.0); RED CELL DISTRIBUTION WIDTH 12.7 % (11.7-14.4)
[2025-02-09 19:48] LABS: CHOL/HDL RATIO 6.4 (3.9-4.7); LDL CHOLESTEROL 38.0 MG/DL (60-130)
[2025-02-09 19:56] LABS: CORONAVIRUS COVID-19 AG NEGATIVE (NEGATIVE)
[2025-02-09 19:58] LABS: EST GLOMERULAR FILTRATION RATE 17 ML/MIN (>=60)
[2025-02-09] MEDS: INSULIN REGULAR, HUMAN 100 UNIT/1 ML IV ONE (20:02)
[2025-02-09] MEDS: ONDANSETRON HCL INJ 2MG/ML 2ML 2 MG/ML VIAL IV STA (20:02)
[2025-02-09] MEDS: SODIUM CHLORIDE 0.9% 1000ML 1,000 ML IV ONE ×2 (20:03→21:06)
[2025-02-09 20:20] LABS: ABG BASE EXCESS -10.0 mmol/L (-2 - 3); ABG HCO3 16 mmol/L (22-26); ABG OXYGEN SATURATION 99.0 % (95-98); ABG PCO2 31 mmHg (35-45); ABG PH 7.33 (7.35-7.45); ABG PO2 129 mmHg (80-105); ABG TCO2 17
[2025-02-09 20:55] LABS: BAND NEUTROPHILS % (MANUAL) 8 %; LYMPHOCYTES % (MANUAL) 2 % (19-48); METAMYELOCYTES % (MANUAL) 1 % (0-0); MONOCYTES % (MANUAL) 3 % (3.4-9.0); MYELOCYTES % (MANUAL) 1 % (0-0); NEUTROPHILS % (MANUAL) 85 % (40-74)
[2025-02-09 20:56] LABS: PLATELET ESTIMATE MODERATELY INCREASED; PLATELET MORPHOLOGY COMMENT NORMAL; RBC MORPHOLOGY COMMENT NORMAL
[2025-02-09 21:20] LABS: LEUKOCYTE ESTERASE ,URINE NEGATIVE (NEGATIVE); PROTEIN,URINE DIPSTICK TRACE (NEGATIVE); URINE UROBILINOGEN 0.2 mg/dL (0.2 - 1)
[2025-02-09 21:42] LABS: WBC,URINE (MAN) 21-50 /HPF (0-5)
[2025-02-09 21:43] LABS: EPITHELIAL CELLS,URINE RARE /LPF
[2025-02-09] MEDS ORDERED: SODIUM CHLORIDE 0.9% 1000ML 1,000 ML ONE (23:01)
[2025-02-09] MEDS: SODIUM CHLORIDE 0.9% 1000ML 1,000 ML IV SCH (23:06)
[2025-02-09 23:45] LABS: EST GLOMERULAR FILTRATION RATE 22 ML/MIN (>=60)
[2025-02-10] VITALS: TEMP 97.9
[2025-02-10 02:00] VITALS: PULSE 95; RESP 16; O2SAT 98
[2025-02-10 02:51] LABS: INR 1.09
[2025-02-15 06:25] LABS: ABG BASE EXCESS -10.0 mmol/L (-2 - 3); ABG HCO3 16 mmol/L (22-26); ABG OXYGEN SATURATION 99.0 % (95-98); ABG PCO2 31 mmHg (35-45); ABG PH 7.33 (7.35-7.45); ABG PO2 129 mmHg (80-105); ABG TCO2 17
== END 2025-02-10 02:14 | disposition other institution (70) ==
LOC: ER 18:58
DX: R10.30 Lower abdominal pain, unspecified (principal); R65.20 Severe sepsis without septic shock; J18.9 Pneumonia, unspecified organism; K86.89 Other specified diseases of pancreas; N17.9 Acute kidney failure, unspecified; E11.65 Type 2 diabetes mellitus with hyperglycemia; K44.9 Diaphragmatic hernia without obstruction or gangrene; K57.30 Diverticulosis of large intestine without perforation or abscess without bleeding; I10 Essential (primary) hypertension; J44.9 Chronic obstructive pulmonary disease, unspecified; I25.2 Old myocardial infarction; I25.10 Atherosclerotic heart disease of native coronary artery without angina pectoris; E78.5 Hyperlipidemia, unspecified; F41.9 Anxiety disorder, unspecified; M54.9 Dorsalgia, unspecified; G89.29 Other chronic pain; R94.31 Abnormal electrocardiogram [ECG] [EKG]; Z80.1 Family history of malignant neoplasm of trachea, bronchus and lung
CPT/HCPCS: 36415; 36600; 51702; 71045; 74176; 80053; 80061; 81001; 82550; 82805; 82948; 83605; 83690; 84484; 85025; 85610; 85730; 87040; 87086; 87426; 93005; 99284; J2405; J2543; J7030; 51700; 80048